=== PATIENT | male | born 1970 | race American Indian/Alaskan Native ===

== ENCOUNTER 2021-03-27 04:15 | Emergency (ER) | payer OTHER ==
[2021-03-27 04:31] VITALS: BP 133/87
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
--- NOTE | 2021-03-27 05:40 | XRay Report ---
LEFT WRIST 2 VIEW(S) INDICATION / CLINICAL INFORMATION: pain LT WRIST PAIN COMPARISON: None available. FINDINGS: BONES / JOINT(S): No acute fracture or subluxation. No significant arthritis. SOFT TISSUES: No significant abnormality. ADDITIONAL FINDINGS: None. Signer Name: Jacinto Shen MD Signed: 03/27/2021 5:36 AM Workstation Name: [id number]
== END 2021-03-27 05:57 ==
LOC: ED 04:15
DX: Z02.89 Encounter for other administrative examinations (principal); S63.502A Unspecified sprain of left wrist, initial encounter; M25.532 Pain in left wrist; V89.2XXA Person injured in unspecified motor-vehicle accident, traffic, initial encounter; Y93.89 Activity, other specified; Y92.89 Other specified places as the place of occurrence of the external cause; Y99.8 Other external cause status
CPT/HCPCS: 99283